=== PATIENT | female | born 1975 | race Caucasian/White ===

== ENCOUNTER 2018-10-29 09:59 | Day surgery (SDC) | payer OTHER ==
[2018-10-26 13:26] LABS: APPEARANCE,URINE SLIGHTLY-CLOUDY; BILIRUBIN,URINE NEGATIVE (NEGATIVE); COLOR,URINE YELLOW; GLUCOSE, URINE NEGATIVE (NEGATIVE); KETONES,URINE NEGATIVE (NEGATIVE); LEUKOCYTE ESTERASE,URINE LARGE (NEGATIVE); NITRITE,URINE NEGATIVE (NEGATIVE); PROTEIN,URINE NEGATIVE (NEGATIVE); URINE SPECIFIC GRAVITY 1.025; UROBILINOGEN,URINE NEGATIVE mg/dL (<2.0)
[2018-10-26 13:30] LABS: HEMATOCRIT 39.1 % (36.0-47.0); HEMOGLOBIN 13.3 g/dL (12.0-15.5); MEAN CORPUSCULAR HGB CONC 33.9 g/dL (32.0-36.0); MEAN CORPUSCULAR VOLUME 92 fl (80-97); PLATELET COUNT 154 10^3/uL (150-450); RED BLOOD COUNT 4.27 10^6/uL (3.72-5.28); RED CELL DISTRIBUTION WIDTH 13.3 % (11.5-14.0); WHITE BLOOD COUNT 4.9 10^3/uL (4.0-10.5)
[~2018-10-29 09:59] MED LIST: FENTANYL CITRATE INJ/PF 100 MCG/2 ML AMPUL ONE; LACTATED RINGERS 1000 ML IV PRN; LIDOCAINE 0.5% INJ-PF (5 MG/ML) 50 ML SDV SUBCUT PRN; MIDAZOLAM 2 MG/2 ML INJ ONE; PROPOFOL INJ 200 MG/20 ML VIAL IV ONE
[2018-10-29] MEDS ORDERED: PROMETHAZINE HCL INJ 25 MG/1 ML VIAL IV PRN (10:01)
[2018-10-29] MEDS ORDERED: DIPHENHYDRAMINE HCL 50 MG/ML VIAL IV PRN (10:01)
[2018-10-29] MEDS ORDERED: MORPHINE SULFATE 10 MG/ML INJ IV PRN (10:01)
[2018-10-29] MEDS ORDERED: ONDANSETRON HCL INJ/PF 4 MG/2 ML SDV IV PRN (10:01)
[2018-10-29] MEDS ORDERED: OXYCODONE-ACETAMINOPHEN 5-325 MG TABLET PO PRN ×4 (10:01→12:05)
[2018-10-29] MEDS ORDERED: FENTANYL CITRATE INJ/PF 100 MCG/2 ML AMPUL IV PRN ×3 (10:01)
[2018-10-29] MEDS ORDERED: MEPERIDINE HCL/PF INJ 25 MG/1 ML DISP.SYRIN IV PRN (10:01)
[2018-10-29] MEDS ORDERED: SCOPOLAMINE HYDROBROMIDE 1.5 MG PATCH.TD72 ONE (10:31)
[2018-10-29] MEDS ORDERED: ACETAMINOPHEN 1,000 MG/100 ML RTUPB IV ONE (12:00)
[2018-10-29] MEDS: HYDROMORPHONE HCL INJ/PF 2 MG/ML AMPULE ONE ×6 (12:00→12:53)
[2018-10-29] MEDS ORDERED: RINGERS SOLUTION,LACTATED 1,000 ML IV PRN (12:03)
[2018-10-29] MEDS ORDERED: MORPHINE SULFATE 10 MG/ML INJ IM PRN (12:03)
[2018-10-29] MEDS ORDERED: IBUPROFEN 800 MG TABLET PO PRN (12:04)
[2018-10-29] MEDS ORDERED: RINGERS SOLUTION,LACTATED 500 ML IV ONE (12:30)
[2018-10-29] MEDS ORDERED: KETOROLAC TROMETHAMINE 60 MG/2 ML SDV ONE (13:30)
[2018-10-29] MEDS ORDERED: DEXAMETHASONE SOD PHOSPHATE INJ 4 MG/1 ML VIAL ONE (13:30)
[2018-10-29] MEDS ORDERED: ROCURONIUM BROMIDE INJ 50 MG/5 ML VIAL IV ONE (13:30)
[2018-10-29] MEDS ORDERED: ONDANSETRON HCL INJ/PF 4 MG/2 ML SDV ONE (13:30)
[2018-10-29] MEDS ORDERED: SUCCINYLCHOLINE CHLORIDE INJ 200 MG/10 ML VIAL ONE (13:30)
[2018-10-29] MEDS ORDERED: OXYCODONE-ACETAMINOPHEN 5-325 MG TABLET ONE (13:40)
[2018-10-29 14:49] VITALS: BP 100/51
--- NOTE | 2018-10-29 15:32 | Operative Report ---
Operative Report DATE OF SURGERY: 10/29/18 PREOPERATIVE DIAGNOSIS: abnormal uterine bleeding, undesired fertility POSTOPERATIVE DIAGNOSIS: Same OPERATION: hysteroscopy D&C with NovaSure ablation and laparoscopic tubal cauterization SURGEON: YONY LANTIGUA ANESTHESIA: GA TISSUE REMOVED OR ALTERED: Endometrial curettings COMPLICATIONS: None ESTIMATED BLOOD LOSS: 20 cc INTRAOPERATIVE FINDINGS: Cavity length of 5.0 cavity width of 2.5, 52 seconds of burn time with a power of 69. Normal fallopian tubes uterus and ovaries PROCEDURE: Patient was taken to the operating room prepared and draped in normal sterile fashion a dorsal lithotomy position. Sterile conditions and in out cath was pe rformed of approximately 10 cc of clear urine. Sterile speculum was placed into the vagina the cervix was grasped on the anterior lip with a single-tooth tenaculum the cervix was prepped with Betadine. And the cervix was dilated to accommodate a 5 mm hysteroscopy. Hysteroscopy was performed without difficulty showing up proliferative endometrial cavity. Sure ablation device was then introduced with the above settings. And the NovaSure ablation was performed. The device was then removed and the hysteroscopy was reintroduced with good victor m noted throughout the endometrial cavity. Clamp was placed through the cervix for uterine manipulation. Gloves were then changed and attention was turned to the upper portion of the case where the umbilical skin incision was made at the umbilicus which a varies needle was introduced and the abdomen was inflated with approximately 2 L of CO2 gas. The Veress needle was removed and a 5 mm port was placed. The patient was placed in Trendelenburg and the camera was introduced with the above findings noted. Under direct visualization another 5 mm port was placed in the left lower quadrant. A Kleppinger was then introduced through this port and beginning with the left fallopian tube approximately 3 and half centimeters of fallopian tube was well cauterized until occlusion was felt to be adequate was repeated on the right fallopian tube without difficulty. The Kleppinger was then removed and the left lower quadrant port was removed under direct visual visualization with good hemostasis. The camera was then removed and the camera port was used to deflate the abdomen. This trocar was then removed and the both sites were closed with 4-0 Vicryl. The Hulka clamp was removed from the cervix. And the patient was taken to recovery in stable condition
== END 2018-10-29 15:00 | disposition home or self-care (01) ==
LOC: OROUT 09:59
PROVIDERS: ATTEND Obstetrics & Gynecology
DX: Z30.2 Encounter for sterilization (principal); N93.9 Abnormal uterine and vaginal bleeding, unspecified
CPT/HCPCS: 86900; 86901; 36415 ×2; 86850; 85027; 81025; 81001; 88305 ×2; 58670; 58563; J2250; J3490; J1100; J1885; J3010; J1170; J0330; J2405; J2704; J0131; 851

== ENCOUNTER → 2020-02-23 | Outpatient (CLI) | payer OTHER ==
[2020-02-23 12:57] LABS: ABSOLUTE LYMPHOCYTES (AUTO) 1.3 10^3/uL (0.5-4.7); ABSOLUTE MONOCYTES (AUTO) 0.3 10^3/uL (0.1-1.4); ABSOLUTE NEUT (AUTO) 3.9 10^3/uL (1.7-8.2); BASOPHILS % (AUTO) 0.4 % (0-2); EOSINOPHILS % (AUTO) 0.6 % (0-6); HEMATOCRIT 41.1 % (36.0-47.0); HEMOGLOBIN 13.8 g/dL (12.0-15.5); LYMPHOCYTES % (AUTO) 23.3 % (13-45); MEAN CORPUSCULAR HEMOGLOBIN 30.9 pg (27.0-33.4); MEAN CORPUSCULAR HGB CONC 33.5 g/dL (32.0-36.0); MEAN CORPUSCULAR VOLUME 92 fl (80-97); MONOCYTES % (AUTO) 4.8 % (3-13); PLATELET COUNT 143 10^3/uL (150-450); RED BLOOD COUNT 4.45 10^6/uL (3.72-5.28); RED CELL DISTRIBUTION WIDTH 13.2 % (11.5-14.0); SEGMENTED NEUTROPHILS % (AUTO) 70.9 % (42-78); TOTAL CELLS COUNTED % (AUTO) 100 %; WHITE BLOOD COUNT 5.4 10^3/uL (4.0-10.5)
[2020-02-23 13:24] LABS: ALBUMIN 4.8 g/dL (3.5-5.0); ALKALINE PHOSPHATASE 43 U/L (38-126); ANION GAP 7 (5-19); ASPARTATE AMINO TRANSFERASE 33 U/L (14-36); BILIRUBIN,TOTAL 0.6 mg/dL (0.2-1.3); BLOOD UREA NITROGEN 14 mg/dL (7-20); CALCIUM 9.6 mg/dL (8.4-10.2); CARBON DIOXIDE 29 mmol/L (22-30); CHLORIDE 102 mmol/L (98-107); GLUCOSE 92 mg/dL (75-110); POTASSIUM 4.3 mmol/L (3.6-5.0); TOTAL PROTEIN 7.7 g/dL (6.3-8.2)
--- NOTE | 2020-02-23 15:55 | RADIOLOGY REPORT (SQ) ---
EXAM DESCRIPTION: CT ABD/PELVIS WITH IV ORAL IMAGES COMPLETED DATE/TIME: 02/23/2020 3:42 pm REASON FOR STUDY: (N83.291)OTHER OVARIAN CYST, RIGHT SIDE;(R10.2)PELVIC AND PERINEAL PAIN N92.0 EXC ESSIVE AND FREQUENT MENSTRUATION WITH REGULAR CYCLE N83.291 OTHER OVARIAN CYST, RIGHT SIDE COMPARISON: None. TECHNIQUE: CT scan of the abdomen and pelvis performed with intravenous and oral contrast using theresa adela scanning technique with dynamic intravenous contrast injection. Images reviewed with lung, soft t issue, and bone windows. Reconstructed coronal and sagittal MPR images reviewed. Delayed images for e valuation of the urinary system also acquired. All images stored on PACS. All CT scanners at this facility use dose modulation, iterative reconstruction, and/or weight based d osing when appropriate to reduce radiation dose to as low as reasonably achievable (ALARA). [facility]: Dose Right [facility]: CareDose [facility]: Dose Right [facility]: Teradose 4D [facility]: SelStor CONTRAST TYPE AND DOSE: contrast/concentration: Isovue 350.00 mmol/ml; Total Contrast Delivered: 62. 0 ml; Total Saline Delivered: 65.0 ml RENAL FUNCTION: GFR > 60. RADIATION DOSE: CT Rad equipment meets quality standard of care and radiation dose reduction techniq ues were employed. CTDIvol: 2.7 - 2.7 mGy. DLP: 251 mGy-cm. . LIMITATIONS: None. FINDINGS: LOWER CHEST: No significant findings. No nodules or infiltrates. LIVER: Normal size. Small cyst. No masses. No dilated ducts. SPLEEN: Normal size. No focal lesions. PANCREAS: No masses. No significant calcifications. No adjacent inflammation or peripancreatic fluid collections. Pancreatic duct not dilated. GALLBLADDER: No identified stones by CT criteria. No inflammatory changes to suggest cholecystitis. ADRENAL GLANDS: No significant masses or asymmetry. RIGHT KIDNEY AND URETER: No solid masses. No significant calcifications. No hydronephrosis or hyd roureter. LEFT KIDNEY AND URETER: No solid masses. No significant calcifications. No hydronephrosis or hydr oureter. AORTA AND VESSELS: No aneurysm. No dissection. Renal arteries, SMA, celiac without stenosis. RETROPERITONEUM: No retroperitoneal adenopathy, hemorrhage or masses. BOWEL AND PERITONEAL CAVITY: No obstruction. No visualized masses. No free fluid. No inflammatory ch anges or thickening of bowel wall. APPENDIX: Normal. PELVIS: 2 cm cyst right ovary. Probable 1 cm fibroid in the fundus. No free fluid. ABDOMINAL WALL: No masses. No hernias. BONES: No significant or acute findings. OTHER: No other significant finding. IMPRESSION: 2 cm cyst right ovary. Suspected small fibroid. TECHNICAL DOCUMENTATION: JOB ID: [id number] Quality ID # [id number]: Final reports with documentation of one or more dose reduction techniques (e.g., Au tomated exposure control, adjustment of the mA and/or kV according to patient size, use of iterative reconstruction technique) 2010 [employer]- All Rights Reserved Reading location - IP/workstation name: [email or web address]
== END ==
LOC: OD 12:10
PROVIDERS: ATTEND Student in an Organized Health Care Education/Training Program
DX: N83.291 Other ovarian cyst, right side (principal); N92.0 Excessive and frequent menstruation with regular cycle; R10.2 Pelvic and perineal pain
CPT/HCPCS: 36415; 74177; 80053; 84443; 85025

== ENCOUNTER 2020-03-30 09:26 | Day surgery (SDC) | payer OTHER ==
[2020-03-27 12:28] LABS: HEMOGLOBIN 14.3 g/dL (12.0-15.5); MEAN CORPUSCULAR HEMOGLOBIN 31.1 pg (27.0-33.4); MEAN CORPUSCULAR HGB CONC 34.1 g/dL (32.0-36.0); MEAN CORPUSCULAR VOLUME 91 fl (80-97); PLATELET COUNT 165 10^3/uL (150-450); RED BLOOD COUNT 4.61 10^6/uL (3.72-5.28); RED CELL DISTRIBUTION WIDTH 13.3 % (11.5-14.0); WHITE BLOOD COUNT 5.8 10^3/uL (4.0-10.5)
[2020-03-27 12:31] LABS: APPEARANCE,URINE CLEAR; BILIRUBIN,URINE NEGATIVE (NEGATIVE); COLOR,URINE YELLOW; GLUCOSE, URINE NEGATIVE (NEGATIVE); KETONES,URINE NEGATIVE (NEGATIVE); LEUKOCYTE ESTERASE,URINE TRACE (NEGATIVE); NITRITE,URINE NEGATIVE (NEGATIVE); PROTEIN,URINE NEGATIVE (NEGATIVE); URINE SPECIFIC GRAVITY 1.015; UROBILINOGEN,URINE NEGATIVE mg/dL (<2.0)
[2020-03-27 12:54] LABS: ALKALINE PHOSPHATASE 35 U/L (38-126); ANION GAP 10 (5-19); ASPARTATE AMINO TRANSFERASE 27 U/L (14-36); BILIRUBIN,DIRECT 0.2 mg/dL (0.0-0.4); BILIRUBIN,TOTAL 0.6 mg/dL (0.2-1.3); BLOOD UREA NITROGEN 17 mg/dL (7-20); CALCIUM 9.6 mg/dL (8.4-10.2); CARBON DIOXIDE 27 mmol/L (22-30); CHLORIDE 100 mmol/L (98-107); GLUCOSE 93 mg/dL (75-110); TOTAL PROTEIN 8.2 g/dL (6.3-8.2)
[~2020-03-30 09:26] MED LIST changes: +CEFAZOLIN 1 GM/D5W RTU 1 GM/50 ML RTUPB IV PRN; -FENTANYL CITRATE INJ/PF 100 MCG/2 ML AMPUL ONE; +FENTANYL CITRATE INJ/PF 250 MCG/5 ML AMPULE ONE; +HYDROMORPHONE HCL INJ/PF 2 MG/ML AMPULE ONE; +SUGAMMADEX SODIUM 200 MG/2 ML SDV IV ONE
[2020-03-30] MEDS ORDERED: CEFAZOLIN 1 GM/D5W RTU 1 GM/50 ML RTUPB IV ONE (09:42)
[2020-03-30] MEDS ORDERED: EPHEDRINE SULFATE INJ 50 MG/1 ML AMPULE ONE (09:46)
[2020-03-30] MEDS ORDERED: LIDOCAINE 1%/EPINEPHRINE INJ 20 ML VIAL ONE (10:06)
[2020-03-30] MEDS ORDERED: DIPHENHYDRAMINE HCL 50 MG/ML VIAL IV PRN (10:47)
[2020-03-30] MEDS ORDERED: MEPERIDINE HCL/PF INJ 25 MG/1 ML DISP.SYRIN IV PRN (10:47)
[2020-03-30] MEDS ORDERED: PROMETHAZINE HCL INJ 25 MG/1 ML VIAL IV PRN ×2 (10:47)
[2020-03-30] MEDS ORDERED: FENTANYL CITRATE INJ/PF 100 MCG/2 ML AMPUL IV PRN ×3 (10:47)
[2020-03-30] MEDS ORDERED: MORPHINE SULFATE 10 MG/ML INJ IV PRN ×2 (10:47→12:05)
[2020-03-30] MEDS ORDERED: OXYCODONE-ACETAMINOPHEN 5-325 MG TABLET PO PRN ×3 (10:47→12:05)
[2020-03-30] MEDS ORDERED: ACETAMINOPHEN 1,000 MG/100 ML RTUPB IV PRN (12:05)
[2020-03-30] MEDS ORDERED: ACETAMINOPHEN 325 MG TABLET PO PRN (12:05)
[2020-03-30] MEDS ORDERED: SIMETHICONE 80 MG TAB.CHEW PO PRN (12:05)
[2020-03-30] MEDS ORDERED: RINGERS SOLUTION,LACTATED 1,000 ML IV PRN (12:05)
--- NOTE | 2020-03-30 12:13 | Operative Report ---
Operative Report DATE OF SURGERY: 03/30/20 PREOPERATIVE DIAGNOSIS: Abnormal uterine bleeding, pelvic pain POSTOPERATIVE DIAGNOSIS: Same and adenomyosis, right ovarian cyst OPERATION: Robotic assisted total laparoscopic hysterectomy with bilateral salpingectomy and right ovarian cystectomy SURGEON: YONY LANTIGUA ANESTHESIA: GA TISSUE REMOVED OR ALTERED: Uterus cervix bilateral fallopian tube segments and right ovarian cyst COMPLICATIONS: None ESTIMATED BLOOD LOSS: 100 cc INTRAOPERATIVE FINDINGS: Right ovary with benign appearing cyst on the ovary, large cervix uterus was boggy in appearance consistent with adenomyosis and possible fibroids of the posterior aspect PROCEDURE: Patient was taken to the operating room prepared and draped in normal sterile fashion in dorsolithotomy position. Under sterile conditions a Hobson catheter was placed to gravity. Speculum was placed into the vagina and the cervix was grasped on the anterior lip with a single-tooth tenaculum. The cervix was then dilated to accommodate a Large V care uterine manipulator. Manipulator was placed gloves were changed and attention was turned to the upper portion of the case. A 2-1/2 cm umbilical skin incision was made 11 blade and this was carried through to the underlying layer of fascia with the same 11 blade. It was grasped to Eros's acted with Menjivar's. New cavity was entered bluntly. A GelPort was placed in a normal fashion the camera port and air seal in the appropriate locations. [place] was then inflated with approximately 2 L of CO2 gas. The camera was then introduced into the peritoneal cavity through the camera port and the patient was placed in steep Trendelenburg. The above findings were noted. Under direct visualization two 5 mm ports were placed approximately 10 cm on either side of the umbilicus. The robot was then docked with the vessel sealer placed on the patient's left and the monopolar scissors placed placed on the patient's right. I then unscrubbed and set at the robotic console beginning with the left adnexa fallopian tube was transected from the uterus using the vessel sealer and monopolar scissors as needed. The fallopian tube was then removed through the assistance port. The ovarian ligament was then transected using the vessel sealer. The uterine artery was skeletonized using blunt dissection and ligated using the vessel sealer down to the level of the external cervical os. The bladder flap was then begun using monopolar scissors and blunt dissection over the V care cup noted through the mucosa. Attention was then turned to the right adnexa where the fallopian tube was transected in a similar fashion. The right ovary was grasped and following the outlines of the ovarian cyst this was dissected with the monopolar scissors dissection as needed . The cyst did rupture and clear fluid was extruded this was suctioned away . The rest of the cyst material was cut from the majority of the ovary . There was some ovarian material that was removed with the cyst in situ . This was then removed from the assistance port. the utero-ovarian ligament was transected using the vessel sealer. The Uterine artery was then transected using the vessel sealer and skeletonized using blunt dissection. The vessel sealer was again used to completely transect the uterine artery down to the level of the external cervical os. The bladder flap was completed using similar sharp and blunt dissection. Once the bladder was felt to be adequately away from the lower uterine segment, the colpotomy was begun on the anterior aspect of the cervix following the outline of the V care cup mucosa. The cup was followed in a circumferential fashion completely around the cervix estimate was completely freed. The specimen was then removed through the vaginal defect. The instruments were then changed to a Kash needle milk driver and pro-grasp. AV lock needle was introduced through the assistance port. The lock needle was used to close the vaginal cuff and hemostasis. The needle was then removed through the assistance port. The peritoneal cavity was carefully inspected the ureters were noted to both be peristalsing and there was no signs of hydroureter. The robot was then undocked. The fascia was closed at the umbilical skin incision seen 0 Vicryl 3 skin incisions were closed using 4-0 Vicryl. Sponge lap and needle counts were correct x2 and the patient was taken to recovery in stable condition.
[2020-03-30] MEDS ORDERED: MORPHINE SULFATE 10 MG/ML INJ ONE (12:53)
[2020-03-30] MEDS: OXYCODONE-ACETAMINOPHEN 5-325 MG TABLET PO PRN ×3 (13:51→22:09)
[2020-03-30] MEDS: KETOROLAC TROMETHAMINE INJ/PF 30 MG/1 ML SDV IV SCH ×2 (13:51→21:26)
[2020-03-30] MEDS ORDERED: KETOROLAC TROMETHAMINE 60 MG/2 ML SDV ONE (14:38)
[2020-03-30] MEDS ORDERED: DEXAMETHASONE SOD PHOSPHATE INJ 4 MG/1 ML VIAL ONE (14:38)
[2020-03-30] MEDS ORDERED: SUCCINYLCHOLINE CHLORIDE INJ 200 MG/10 ML VIAL ONE (14:38)
[2020-03-30] MEDS ORDERED: METOCLOPRAMIDE HCL INJ/PF 10 MG/2 ML SDV ONE (14:38)
[2020-03-30] MEDS ORDERED: ROCURONIUM BROMIDE INJ 50 MG/5 ML VIAL IV ONE (14:38)
[2020-03-30] MEDS ORDERED: DIPHENHYDRAMINE HCL 50 MG/ML VIAL ONE (14:38)
[2020-03-30] MEDS: PROMETHAZINE HCL INJ 25 MG/1 ML VIAL IV PRN ×2 (15:01→21:26)
[2020-03-30] MEDS ORDERED: IBUPROFEN 800 MG TABLET PO SCH (18:00)
[2020-03-30] MEDS: DOCUSATE SODIUM 100 MG CAPSULE PO SCH (18:09)
[2020-03-31] MEDS: OXYCODONE-ACETAMINOPHEN 5-325 MG TABLET PO PRN ×2 (02:12→10:29)
[2020-03-31] MEDS: KETOROLAC TROMETHAMINE INJ/PF 30 MG/1 ML SDV IV SCH (06:20)
[2020-03-31 06:58] LABS: HEMATOCRIT 33.5 % (36.0-47.0); HEMOGLOBIN 11.3 g/dL (12.0-15.5); MEAN CORPUSCULAR HEMOGLOBIN 31.2 pg (27.0-33.4); MEAN CORPUSCULAR HGB CONC 33.9 g/dL (32.0-36.0); MEAN CORPUSCULAR VOLUME 92 fl (80-97); PLATELET COUNT 149 10^3/uL (150-450); RED BLOOD COUNT 3.64 10^6/uL (3.72-5.28); WHITE BLOOD COUNT 12.9 10^3/uL (4.0-10.5)
--- NOTE | 2020-03-31 07:59 | PDOC DISCHARGE SUMMARY ---
Impression - Admit/DC Date/PCP Admission Date/Primary Care Provider: 03/30/20 13:50 CHLOÉ SIMMONS MD Discharge Date: 03/31/20 - Discharge Diagnosis (1) Abnormal uterine bleeding Is this a current diagnosis for this admission?: Yes (2) Adenomyosis Is this a current diagnosis for this admission?: Yes (3) Right ovarian cyst Is this a current diagnosis for this admission?: Yes (4) Pelvic pain Is this a current diagnosis for this admission?: Yes - Assessment Summary: Patient underwent a robotic assisted total laparoscopic hysterectomy with bilateral salpingectomy. Has had a very unremarkable postoperative course and is currently voiding nicely tolerating a regular diet ambulating well. Is ready for discharge home - Additional Information Resuscitation Status: Full Code Discharge Diet: As Tolerated Discharge Activity: Balance Activity w/Rest, No Driving, No Lifting Over 10 Pounds, No Lifting/Push/Pulling, Pelvic Rest, No tub bath Referrals: CHLOÉ SIMMONS MD [Primary Care Provider] - Prescriptions: Oxycodone HCl/Acetaminophen [Percocet 5-325 mg Tablet] 1 tab PO Q4HP PRN #30 t ablet PRN Reason: Docusate Sodium [Colace 100 mg Capsule] 100 mg PO BID #60 capsule Ibuprofen [Motrin 800 mg Tablet] 800 mg PO Q8H #60 tablet Home Medications: Docusate Sodium [Colace 100 mg Capsule] 100 mg PO BID #60 capsule 03/31/20 Ibuprofen [Motrin 800 mg Tablet] 800 mg PO Q8H #60 tablet 03/31/20 Oxycodone HCl/Acetaminophen [Percocet 5-325 mg Tablet] 1 tab PO Q4HP PRN #30 tablet 03/31/20 History of Present Illiness History of Present Illness: RAFAT RAINEY is a 44 year old female Physical Exam - Physical Exam Vital Signs: Temp Pulse Resp BP Pulse Ox 98.5 F 82 16 95/45 L 100 03/31/20 03:44 03/31/20 03:44 03/31/20 03:44 03/31/20 03:44 03/31/20 03:44 Intake & Output 03/30/20 03/31/20 04/01/20 06:59 06:59 06:59 Intake Total 2450 Output Total 300 Balance 2150 Weight 53.78 kg Results Laboratory Results: WBC 12.9 10^3/uL (4.0-10.5) H 03/31/20 06:37 RBC 3.64 10^6/uL (3.72-5.28) L 03/31/20 06:37 Hgb 11.3 g/dL (12.0-15.5) L 03/31/20 06:37 Hct 33.5 % (36.0-47.0) L 03/31/20 06:37 MCV 92 fl (80-97) 03/31/20 06:37 MCH 31.2 pg (27.0-33.4) 03/31/20 06:37 MCHC 33.9 g/dL (32.0-36.0) 03/31/20 06:37 RDW 13.0 % (11.5-14.0) 03/31/20 06:37 Plt Count 149 10^3/uL (150-450) L 03/31/20 06:37 Sodium 137.3 mmol/L (137-145) 03/27/20 11:31 Potassium 4.0 mmol/L (3.6-5.0) 03/27/20 11:31 Chloride 100 mmol/L (98-107) 03/27/20 11:31 Carbon Dioxide 27 mmol/L (22-30) 03/27/20 11:31 Anion Gap 10 (5-19) 03/27/20 11:31 BUN 17 mg/dL (7-20) 03/27/20 11:31 Creatinine 0.82 mg/dL (0.52-1.25) 03/27/20 11:31 Est GFR ( Amer) > 60 (>60) 03/27/20 11:31 Est GFR (MDRD) Non-Af > 60 (>60) 03/27/20 11:31 Glucose 93 mg/dL (75-110) 03/27/20 11:31 Calcium 9.6 mg/dL (8.4-10.2) 03/27/20 11:31 Total Bilirubin 0.6 mg/dL (0.2-1.3) 03/27/20 11:31 Direct Bilirubin 0.2 mg/dL (0.0-0.4) 03/27/20 11:31 Neonat Total Bilirubin Not Reportable 03/27/20 11:31 Neonat Direct Bilirubin Not Reportable 03/27/20 11:31 Neonat Indirect Bili Not Reportable 03/27/20 11:31 AST 27 U/L (14-36) 03/27/20 11:31 ALT 15 U/L (<35) 03/27/20 11:31 Alkaline Phosphatase 35 U/L (38-126) L 03/27/20 11:31 Total Protein 8.2 g/dL (6.3-8.2) 03/27/20 11:31 Albumin 5.0 g/dL (3.5-5.0) 03/27/20 11:31 Urine Color YELLOW 03/27/20 11:21 Urine Appearance CLEAR 03/27/20 11:21 Urine pH 6.0 (5.0-9.0) 03/27/20 11:21 Ur Specific [place] 1.015 03/27/20 11:21 Urine Protein NEGATIVE mg/dL (NEGATIVE) 03/27/20 11:21 Urine Glucose (UA) NEGATIVE mg/dL (NEGATIVE) 03/27/20 11:21 Urine Ketones NEGATIVE mg/dL (NEGATIVE) 03/27/20 11:21 Urine Blood NEGATIVE (NEGATIVE) 03/27/20 11:21 Urine Nitrite NEGATIVE (NEGATIVE) 03/27/20 11:21 Urine Bilirubin NEGATIVE (NEGATIVE) 03/27/20 11:21 Urine Urobilinogen NEGATIVE mg/dL (<2.0) 03/27/20 11:21 Ur Leukocyte Esterase TRACE (NEGATIVE) H 03/27/20 11:21 Urine WBC (Auto) 1 /HPF 03/27/20 11:21 Urine RBC (Auto) 0 /HPF 03/27/20 11:21 Urine Bacteria (Auto) TRACE /HPF 03/27/20 11:21 Squamous Epi Cells Auto 1 /HPF 03/27/20 11:21 Urine Mucus (Auto) RARE /LPF 03/27/20 11:21 Urine Ascorbic Acid NEGATIVE (NEGATIVE) 03/27/20 11:21 Urine HCG, Qual NEGATIVE (NEGATIVE) 03/30/20 09:40 COVID-19 Source See comment 03/27/20 11:31 COVID-19 (BRE) Not Detected (Not Detect) 03/27/20 11:31 Blood Type A POSITIVE 03/27/20 11:31 Antibody Screen NEGATIVE 03/27/20 11:31 Stroke Is this a Stroke Patient?: No Acute Heart Failure Is this a Heart Failure Patient?: No
[2020-03-31 08:37] VITALS: BP 95/54
[2020-03-31] MEDS: DOCUSATE SODIUM 100 MG CAPSULE PO SCH (09:03)
[2020-03-31] MEDS ORDERED: IBUPROFEN 800 MG TABLET PO SCH (12:00)
== END 2020-03-31 10:41 | disposition home or self-care (01) ==
LOC: OROUT 09:26 → 2N 13:30 → OROUT 13:31 → UNDOADMIN 13:50 → 2N 13:50 → UNDODISIN 03-31 10:41 → OROUT 03-31 10:41
PROVIDERS: ATTEND Obstetrics & Gynecology
DX: N93.9 Abnormal uterine and vaginal bleeding, unspecified (principal); N80.0 Endometriosis of uterus; R10.2 Pelvic and perineal pain; N87.9 Dysplasia of cervix uteri, unspecified; N83.11 Corpus luteum cyst of right ovary; N83.8 Other noninflammatory disorders of ovary, fallopian tube and broad ligament; Z01.812 Encounter for preprocedural laboratory examination; Z20.822 Contact with and (suspected) exposure to COVID-19; Z98.51 Tubal ligation status; Z79.3 Long term (current) use of hormonal contraceptives
CPT/HCPCS: 58571; S2900; 36415; 80053; 81001; 81025; 840; 85027; 86850; 86900; 86901; 87635; 88307; A4649; C1758; C9803; J0330; J0690; J1100; J1170; J1200; J1885; J2250; J2270; J2550; J2704; J2765; J3010; J3490